=== PATIENT | male | born 1985 | race Caucasian/White ===

== ENCOUNTER → 2020-11-21 19:00 | Outpatient (CLI) | payer OTHER, SELFPAY ==
--- NOTE | 2020-11-21 19:03 | DI.MRI.S_ITS ---
PROCEDURE: MR HEAD/BRAIN WO/W CON INDICATIONS: OTHER SPECIFIED DISORDER OF MUSCLES, MS TECHNIQUE: Noncontrast axial T1 spin echo, axial T2 fast spin echo, sagittal and axial FLAIR, coronal T2 fast spin echo, axial gradient echo, axial diffusion and ADC through the brain. After the administration of contrast, axial and coronal 3D VIBE or T1 spin echo with fat saturation through the brain. COMPARISON: None. FINDINGS: Image quality: Excellent. CSF Spaces: Basal cisterns are patent. No extra-axial fluid collections. Ventricles are normal in size and shape. Brain: No midline shift. No intracranial bleeds or masses. No abnormal intracranial enhancement. The brainstem appears normal. Diffusion-weighted images demonstrate no acute ischemic insults. No chronic ischemic insults. Normal intravascular flow voids are present. Skull and face: Calvarial marrow is normal in signal. Orbits appear normal. Sinuses: Small mucous retention cysts versus polyps noted in the maxillary sinuses. mastoids appear clear. IMPRESSION: 1. No intracranial disease process. 2. No abnormal intracranial signal. 3. No abnormal intracranial mass or mass effect. 4. No suspicious postcontrast enhancement. Dictated by: Delmy Urbina MD, PhD on 11/24/2020 at 7:02 Approved by: Delmy Urbina MD, PhD on 11/24/2020 at 10:12
== END ==
PROVIDERS: Referring Provider Physician Assistant; Visit Provider Physician Assistant
DX: M62.89 Other specified disorders of muscle (principal); H53.8 Other visual disturbances
CPT/HCPCS: 70553; A9579

== ENCOUNTER → 2021-07-10 11:07 | Outpatient (CLI) | payer OTHER, MEDICAID, SELFPAY | PROVIDERS: Visit Provider Nurse Practitioner Critical Care Medicine | DX: J02.9 Acute pharyngitis, unspecified (principal) | CPT/HCPCS: 87070; 87880 ==

== ENCOUNTER → 2022-12-13 18:28 | Outpatient (CLI) | payer OTHER, SELFPAY ==
--- NOTE | 2022-12-13 | DI.MRI.S_ITS ---
PROCEDURE: MR CERVICAL SPINE WO CON INDICATIONS: Cervicalgia TECHNIQUE: Noncontrast sagittal T1 spin echo and T2 fast spin echo, sagittal STIR, foraminal oblique sagittal T2 fast spin echo, and axial gradient echo or T2 fast spin echo through the cervical spine. COMPARISON: None. FINDINGS: Image quality: Excellent. Alignment and Curvature: There is mild appearance of cervical straightening.. Bone Marrow: Marrow demonstrates normal overall signal. Spinal Cord: Visualized spinal cord has normal size and signal. No cerebellar tonsillar herniation. Paraspinous Soft Tissues: No paravertebral masses. Prevertebral soft tissues are normal in thickness. C2-C3: Minimal disc bulge without spinal stenosis or foraminal narrowing. C3-C4: Minimal disc bulge without spinal stenosis or foraminal narrowing. C4-C5: Mild disc bulge with small superimposed posterior central protrusion. There is indentation of the anterior thecal sac and cord. No foraminal narrowing. C5-C6: Mild disc bulge with effacement of the anterior thecal sac. Minimal left foraminal narrowing with uncovertebral hypertrophy. C6-C7: No disc bulge, spinal stenosis or foraminal narrowing. C7-T1: No disc bulge, spinal stenosis or foraminal narrowing. IMPRESSION: Early degenerative changes demonstrating minimal to mild disc bulges, effacement of the thecal sac and minimal foraminal narrowing. Dictated by: Carolina Rendon M.D. on 12/14/2022 at 10:38 Approved by: Carolina Rendon M.D. on 12/14/2022 at 11:11
== END ==
PROVIDERS: Referring Provider Orthopaedic Surgery Orthopaedic Surgery of the Spine; Visit Provider Orthopaedic Surgery Orthopaedic Surgery of the Spine
DX: M50.321 Other cervical disc degeneration at C4-C5 level (principal)
CPT/HCPCS: 72141